=== PATIENT | male | born 1950 | race Caucasian/White ===

== ENCOUNTER 2025-06-25 08:52 | Outpatient (CLI) | payer OTHER, SELFPAY ==
--- NOTE | 2025-06-25 08:59 | CTR_ITS ---
PROCEDURE INFORMATION: Exam: CT Chest With Contrast; Diagnostic Exam date and time: 06/25/2025 9:26 AM Age: 75 years old Clinical indication: Condition or disease; Lung condition and disease; Pulmonary nodule, solitary; Additional info: Bilateral nodules found on CT w/shortness of breath TECHNIQUE: Imaging protocol: Diagnostic computed tomography of the chest with contrast. Radiation optimization: All CT scans at this facility use at least one of these dose optimization techniques: automated exposure control; mA and/or kV adjustment per patient size (includes targeted exams where dose is matched to clinical indication); or iterative reconstruction. Contrast material: OMNI 350; Contrast volume: 100 ml; Contrast route: INTRAVENOUS (IV); COMPARISON: CR XR chest 1V [id number] 10/27/2019 4:15 PM RADIATION DOSE METRICS: Total DLP (mGy-cm): 643.93 FINDINGS: Thyroid: 3 cm nodule within the right thyroid lobe. Consider ultrasound. Lungs: Tiny faint fissural nodules on each side. No suspicious pulmonary nodule is observed. Pleural spaces: Unremarkable. No pneumothorax. No pleural effusion. Heart: Unremarkable. No cardiomegaly. No pericardial effusion. Lymph nodes: Calcified central lymph nodes. Vasculature: Unremarkable. No aortic aneurysm. Gallbladder and biliary ducts: Faint gallstones. Spleen: Calcified granuloma in the spleen. Kidneys: Left renal cyst. Nonobstructing left renal calculus. Bones/joints: Unremarkable. No acute fracture. Soft tissues: Unremarkable. Other findings: Scattered calcified granulomata bilaterally. CT/CT chest w con* [id number] IMPRESSION: 1. No suspicious pulmonary nodules. Granulomatous disease. 2. Incidental findings as described above. COMMENTS: 1. Consistent with the [employer]'s Incidental Findings Committee white paper (J Am Azael Radiol 2018): Any incidental renal lesion less than 1 cm or classified as too small to characterize, or any incidental cystic renal lesion characterized as simple-appearing, is likely benign. No follow-up imaging is recommended for these lesions per consensus recommendations based on imaging criteria. 2. Consistent with the [employer]'s Incidental Findings Committee white paper (J Am Azael Radiol 2015): In patients aged 35 years and older with an incidental thyroid nodule equal to or greater than 1.[address], MRI or extrathyroidal US, further evaluation with dedicated thyroid US is recommended for patients with normal life expectancy and without comorbidities. For smaller nodules without suspicious features, no further evaluation or follow up is recommended.
[2025-06-25] MEDS: iohexol 350 mg/mL 500 mL Btl (per mL) IV (09:35)
== END 2025-06-25 08:53 | disposition home or self-care (01) ==
LOC: RAD 08:56
PROVIDERS: PCP Nurse Practitioner Family; Visit Provider Nurse Practitioner
DX: R91.8 Other nonspecific abnormal finding of lung field (principal)
CPT/HCPCS: 71260